=== PATIENT | female | born 1990 | race African-American/Black ===

== ENCOUNTER 2017-04-01 22:12 | Emergency (ER) | payer OTHER ==
[~2017-04-01] VITALS: Ht 160 cm; Wt 68.0 kg
[2017-04-01] MEDS ORDERED: IPRATROPIUM BROMIDE (0.02%) 0.5MG/2.5ML NEB HHN STA (22:56)
[2017-04-01] MEDS ORDERED: ALBUTEROL (0.083%) 2.5MG/3ML NEB HHN STA (22:56)
[2017-04-01] MEDS ORDERED: METHYLPREDNISOLONE SOD SUCC 125 MG/2 ML VIAL IV STA (22:56)
[2017-04-01] MEDS ORDERED: EPINEPHRINE 1:1000 1 MG/ML AMP IM ONE (23:00)
[2017-04-01] MEDS ORDERED: MAGNESIUM 2 G PREMIX 50 ML IV ONE (23:00)
[2017-04-01] MEDS ORDERED: ONDANSETRON HCL 4MG/2ML VIAL IV ONE (23:15)
[2017-04-02 02:20] VITALS: BP 101/55
== END 2017-04-02 02:22 | disposition home or self-care (01) ==
LOC: ER 22:12
DX: J45.901 Unspecified asthma with (acute) exacerbation (principal); T78.40XA Allergy, unspecified, initial encounter; X58.XXXA Exposure to other specified factors, initial encounter
CPT/HCPCS: 71045; 94640; 96365; 96366; 96372; 96375; 99291; J0171; J2405; J2930; J3475; J7611; Z7610